=== PATIENT | female | born 1985 ===

== ENCOUNTER 2017-11-28 13:22 | Emergency (ER) | payer SELFPAY ==
[2017-11-28 20:06] VITALS: BP 108/66; PULSE 101; RESP 18; TEMP 98.1; O2SAT 98
== END 2017-11-28 15:35 | disposition home or self-care (01) ==
LOC: H.EROB2 13:22 → H.L&D 13:47 → H.EROB2 15:35
DX: O23.92 Unspecified genitourinary tract infection in pregnancy, second trimester (principal); Z3A.27 27 weeks gestation of pregnancy; O09.92 Supervision of high risk pregnancy, unspecified, second trimester

== ENCOUNTER 2018-02-23 03:21 | Inpatient (IN) | payer MEDICAID ==
[2018-02-23 03:46] VITALS: BMI 31.2
[2018-02-23] MEDS ORDERED: Lactated Ringer's 1,000 ML IV ONE (04:03)
[2018-02-23] MEDS ORDERED: Lactated Ringer's 1,000 ML IV SCH (04:15)
[2018-02-23 04:33] LABS: BASO # 0.1 K/uL (0.0-0.2); BASO % 0.5 % (0.0-2.0); EOS % 0.1 % (0.0-4.0); HEMOGLOBIN 11.3 g/dL (12.0-16.0); LYMPH # 1.2 K/uL (1.0-4.3); LYMPH % 9.3 % (20.0-40.0); MEAN CORPUSCULAR HEMOGLOBIN 30.2 pg (27.0-31.0); MEAN CORPUSCULAR HGB CONC 34.3 g/dL (33.0-37.0); MEAN PLATELET VOLUME 9.6 fl (7.2-11.7); MONO # 0.6 K/uL (0.0-0.8); MONO % 4.4 % (0.0-10.0); NEUT # 11.4 K/uL (1.8-7.0); NEUT % 85.7 % (50.0-75.0); PLATELET COUNT 176 K/uL (130-400); RBC 3.76 Mil/uL (3.80-5.20); RED CELL DISTRIBUTION WIDTH 17.2 % (11.5-14.5); WHITE BLOOD COUNT 13.3 K/uL (4.8-10.8)
[2018-02-23 05:41] LABS: LYMPHOCYTE 12 % (20-50); MONOCYTE 5 % (0-10); NEUTROPHIL 83 % (42-75); PLATELET ESTIMATE NORMAL (NORMAL); TOTAL CELLS COUNTED 100
[2018-02-23 05:42] LABS: ANISOCYTOSIS SLIGHT; HYPOCHROMIC SLIGHT
[2018-02-23] MEDS ORDERED: Oxytocin 30 UNIT 30 UNITS/500 ML BAG IV ONE (05:52)
[2018-02-23] MEDS ORDERED: OXYTOCIN/0.9 % NS 20 UNIT/1,000 ML BAG IV SCH (06:00)
[2018-02-23] MEDS ORDERED: Lidocaine 2% MPF (5 ml) Inj ONE (06:56)
--- NOTE | 2018-02-23 08:00 | OBHP ---
Datetime: 02/23/2018 07:57 IP Adm Impression: Term, intrauterine ; Active labor; Ruptured Membranes IP Admit Plan: Admit to unit; Initiate labor protocol Pelvic Type - PN: Adequate Extremities - PN: Normal Abdomen - PN: Normal Back - PN: Normal Breast - PN: Normal Lungs - PN: Normal Heart - PN: Normal Thyroid - PN: Normal Neurologic - PN: Normal HEENT - PN: Normal General - PN: Normal FHR - Baseline A Provider: 120s EGA AdmitDate IP: 38.1 Vital Signs Provider: Reviewed; Within Normal Limits IP Indication for Induction: Not Applicable IP Chief Complaint: Uterine contractions NICHD Variability Prov Fetus A: Moderate 6-25bpm NICHD Accel Fetus A IP Provider: 15X15 FHR Category Provider Fetus A: Category I NICHD Decel Fetus A IP Provider: None Dilatation, Provider: 5 Effacement, Provider: 100 Station, Provider: 0 Genitourinary Exam: Normal DTRs - PN: Normal Datetime: 11/28/2017 15:09 IP Chief Complaint Other: vaginal itching Admit Comment, IP Provider: 32 yo , IUP at 25.5 weeks gestational age, presented to [facility] with c/ o vaginal itching x1 day. States that yesterday she started experiencing itching/burning and had whit e discharge per vagina. No bleeding, no contractions, no feeling like she is losing fluid. Reports go od movement. PNC: [facility], Dr. Ramachandran Next visit 12/13 Obhx: hx abnormal pap with cone biopsy 4 y ago in [facility] hx: cone biopsy as above med hx: childhood asthma, resolved 10 y ago fam hx: father of complications of diabetes soc hx: denies tobacco alcohol drugs allergies: nkda meds: pnv PE: FHR reactive, + accels no ctx on monitor SSE: thick white discharge in vaginal vault Assessment: 32 yo with IUP at 25.5 weeks; no signs of labor at this time, likely has yeast infection. Plan: Given rx for terazol-7 nightly application x 7 days; advised to f/u in clinic at scheduled a ppointment or earlier prn. Pt seen/examined with Dr. Flores. Comments, ACOG Physical Exam: speculum exam: thick white discharge
--- NOTE | 2018-02-23 08:03 | OBADHP ---
Datetime: 02/23/2018 07:57 Admit Comment, IP Provider: presented to OB ED complaining of contractions. Also complaining o f leakage of fluids. Patient found to be 5 cm dilated and grossly ruptured. heart tracing reass uring Past medical history denies Past surgical history denies Medications vitamins No known drug allergies Obstetrical history Social history no tobacco, drugs, alcohol Assessment: Active labor, spontaneous rupture of membranes, GBS negative Plan: Admit to labor and delivery for management Pelvic Type - PN: Adequate Extremities - PN: Normal Abdomen - PN: Normal Back - PN: Normal Breast - PN: Normal Lungs - PN: Normal Heart - PN: Normal Thyroid - PN: Normal Neurologic - PN: Normal HEENT - PN: Normal General - PN: Normal FHR - Baseline A Provider: 120s Vital Signs Provider: Reviewed; Within Normal Limits IP Chief Complaint: Uterine contractions NICHD Variability Prov Fetus A: Moderate 6-25bpm NICHD Accel Fetus A IP Provider: 15X15 FHR Category Provider Fetus A: Category I NICHD Decel Fetus A IP Provider: None Dilatation, Provider: 5 Effacement, Provider: 100 Station, Provider: 0 Genitourinary Exam: Normal DTRs - PN: Normal EGA AdmitDate IP: 38.1 IP Adm Impression: Term, intrauterine ; Active labor; Ruptured Membranes IP Admit Plan: Admit to unit; Initiate labor protocol Datetime: 11/28/2017 15:09 IP Chief Complaint Other: vaginal itching Comments, ACOG Physical Exam: speculum exam: thick white discharge
--- NOTE | 2018-02-23 08:18 | OBDS ---
DELIVERY PERSONNEL Delivery Doctor: Juhi Flores MD Scrub Nurse: Glenis Nunez Structural Design Engineer: mike mead rn / abhinav coleman rn MATERNAL INFORMATION Delivery Anesthesia: Local Medications in Delivery: pitocin Estimated Blood Loss (ml): 200 Placenta Cultured: No Maternal Complications: None RN Comments: skin to skin bonding done Provider Comments: Normal spontaneous vaginal delivery. Patient delivered viable female with Apgars of 9 and 9 at one and 5 minutes respectively. I nfant delivered via SANDRA position. Placenta delivered spontaneously. Lacerations repaired, as above. U terus firm and appropriately hemostatic following delivery. Patient tolerated delivery and repair wel l. medications. Estimated blood loss 200 mL. LABOR SUMMARY EDC: 03/08/2018 00:00 No. Babies in Womb: 1 LABOR INFORMATION Onset of Labor: 02/22/2018 21:00 Complete Dilatation: 02/23/2018 06:00 Group B Beta Strep: Negative Steroids Given: None Reason Steroids Not Administered: Not Applicable MEMBRANES Membranes Rupture Method: Spontaneous Rupture of Membranes: 02/22/2018 22:00 Length of Rupture (hrs): 9.00 Amniotic Fluid Color: Clear Amniotic Fluid Amount: Large Amniotic Fluid Odor: Normal STAGES OF LABOR Stage 1 hrs: 9 Stage 1 min: 0 Stage 2 hrs: 1 Stage 2 min: 0 VAGINAL DELIVERY Episiotomy: None Laceration Extension: Second Degree Laceration Type: Perineal; Periurethral Laceration Repair Note: Second-degree midline peroneal laceration. Bilateral first-degree periurethr al lacerations. Area was infiltrated with 2% lidocaine. Lacerations repaired with 2. 0 repeat without complication. Patient tolerated repair well. BABY A INFORMATION Infant Delivery Date/Time: 02/23/2018 07:00 Method of Delivery: Vaginal Born in Route : No : N/A Forceps: N/A Vacuum Extraction: N/A SHOULDER DYSTOCIA BABY A Delivery Date/Time: 02/23/2018 07:00 PRESENTATION/POSITION BABY A Presentation: Cephalic Cephalic Presentation: Vertex Vertex Position: Left Occipital Anterior Breech Presentation: N/A INFORMATION BABY A Gestational Age at Delivery: 39 3/7 Gestational Status: Term Outcome : Liveborn Infant Condition : Stable Sex: Female
[2018-02-23] MEDS ORDERED: Oxycodone/Acetaminophen 5/325 mg Tab PO PRN ×2 (11:41→21:39)
[2018-02-23] MEDS ORDERED: Benzocaine/Menthol SPRAY TOP PRN ×2 (11:41→21:39)
[2018-02-23 13:00] LABS: BASO % 0.2 % (0.0-2.0); HEMOGLOBIN 9.3 g/dL (12.0-16.0); LYMPH # 1.2 K/uL (1.0-4.3); LYMPH % 6.9 % (20.0-40.0); MEAN CELL VOLUME 89.4 fl (81.0-99.0); MEAN CORPUSCULAR HEMOGLOBIN 30.2 pg (27.0-31.0); MEAN CORPUSCULAR HGB CONC 33.8 g/dL (33.0-37.0); MEAN PLATELET VOLUME 9.8 fl (7.2-11.7); MONO # 1.2 K/uL (0.0-0.8); NEUT # 14.7 K/uL (1.8-7.0); NEUT % 85.9 % (50.0-75.0); RBC 3.09 Mil/uL (3.80-5.20); RED CELL DISTRIBUTION WIDTH 17.2 % (11.5-14.5); WHITE BLOOD COUNT 17.1 K/uL (4.8-10.8)
--- NOTE | 2018-02-23 14:14 | OBPPN ---
Datetime: 02/23/2018 13:44 PP Pain Prov: Within normal limits PP Nausea Prov: Denies PP Flatus Prov: No PP BM Prov: No PP Breasts Prov: Not Done PP Heart Prov: Normal PP Lungs Prov: Normal PP Abdomen/Uterus Prov: Normal PP Lochia Prov: Normal PP Vulva/Perineum Prov: Not Done PP CVA Tenderness Prov: Not Done PP Extremities Prov: Normal PP Impression Prov: Normal progression PP Plan Prov: Continue present management PP Progress Note Prov: PPD 0 Pt is a 32 y/o female s/p at 7am this morning. Pt's heart rate noted to be elevated ran ging from 100-160's. Pt had brief episode of feeling lightheaded when getting up from toilet as per Matt Wheeler. I saw and evaluated pt. She denied any cp, sob. Stated she had mild abdominal pain and was feeling anxious. O: Remainder of vitals reviewed: BP stable, Afebrile, O2 sat 98-99 on rm air Cardipulmonary exam was uremarkable. CBC ordered: Hemoglobin 9.3 (before delivery was 11.3) EKG: Normal Sinus Rythm Pt evaluated again and was found sleeping with HR in 90's. Discussed case with Dr. Schmidt. OBHospitalist Addendum: 32 yo [id number] PPD 0 s/o , w/ no c/o w/ tachycardia. Will order TSH and order medicine consult. (ES) Vital Signs Provider PP: Reviewed Vital Signs Provider Details PP: Pt tachycardiac ranging from 100-150's
--- NOTE | 2018-02-23 16:08 | CP.PCM.CON ---
History of Present Illness - History of Present Illness History of Present Illness: 32 yo female just delivered spontaneously vaginally to a healthy female referred because of tachyarrhythmia. Patient claimed that she still have bearable lower abdominal pain which get worse when she ambulate. Heart rate jumped from within normal limit to above 100 when standing and ambulating. Meds Allergies/Adverse Reactions: Allergies Allergy/AdvReac Type Severity Reaction Status Date / Time No Known Allergies Allergy Verified 11/28/17 13:38 - Medications Medications: Current Medications Benzocaine/Menthol (Dermoplast) 1 sprays TOP Q6 PRN PRN Reason: Perineal Discomfort Lactated Ringer's (Lactated Ringer's) 1,000 mls @ 125 mls/hr IV .Q8H TETE Last Admin: 02/23/18 05:00 Dose: 125 mls/hr Ibuprofen (Motrin Tab) 600 mg PO Q6 PRN PRN Reason: Pain, Mild (1-3) Multivitamins/Minerals (Therapeutic-M Tab) 1 tab PO DAILY [facility] Oxycodone/Acetaminophen (Percocet 5/325 Mg Tab) 1 tab PO Q4 PRN PRN Reason: Pain, moderate (4-7) Stop: 02/26/18 11:42 Sennosides (Senokot Tab) 17.2 mg PO HS [facility] Results - Vital Signs Recent Vital Signs: Last Vital Signs Temp 98 F 02/23/18 04:30 Pulse 83 02/23/18 04:30 Resp 18 02/23/18 04:30 BP 127/83 02/23/18 04:30 Pulse Ox 98 02/23/18 04:30 - Labs Result Diagrams: 02/23/18 11:40 Labs: Laboratory Results - last 24 hr 02/23/18 02/23/18 02/23/18 04:20 04:29 11:40 WBC 13.3 H 17.1 H RBC 3.76 L 3.09 L Hgb 11.3 L 9.3 L D Hct 33.0 L 27.6 L MCV 88.0 D 89.4 MCH 30.2 30.2 MCHC 34.3 33.8 RDW 17.2 H 17.2 H Plt Count 176 151 MPV 9.6 9.8 Neut % (Auto) 85.7 H 85.9 H Lymph % (Auto) 9.3 L 6.9 L Pine % (Auto) 4.4 7.0 Eos % (Auto) 0.1 0.0 Baso % (Auto) 0.5 0.2 Neut # (Auto) 11.4 H 14.7 H Lymph # (Auto) 1.2 1.2 Pine # (Auto) 0.6 1.2 H Eos # (Auto) 0.0 0.0 Baso # (Auto) 0.1 0.0 Neutrophils % (Manual) 83 H Lymphocytes % (Manual) 12 L Monocytes % (Manual) 5 Platelet Estimate Normal Hypochromasia (manual) Slight Anisocytosis (manual) Slight Blood Type O POSITIVE Antibody Screen Negative BBK History Checked Patient has bt Assessment & Plan - Assessment and Plan (Free Text) Assessment: tachycardia secondary to pain and volume depletion post delivery IV hydration with NSS at 200cc/hr pain management repeat CBC and BMP
[2018-02-23] MEDS ORDERED: Sodium Chloride 0.9% 1,000 ML IV SCH ×2 (16:15→21:39)
[2018-02-23 19:36] LABS: BASO % 0.1 % (0.0-2.0); LYMPH # 1.9 K/uL (1.0-4.3); LYMPH % 12.1 % (20.0-40.0); MEAN CELL VOLUME 89.9 fl (81.0-99.0); MEAN CORPUSCULAR HEMOGLOBIN 29.7 pg (27.0-31.0); MEAN CORPUSCULAR HGB CONC 33.1 g/dL (33.0-37.0); MEAN PLATELET VOLUME 9.5 fl (7.2-11.7); MONO # 1.2 K/uL (0.0-0.8); NEUT # 12.3 K/uL (1.8-7.0); NEUT % 79.8 % (50.0-75.0); NRBC % 0.1 % (0.0-0.0); RBC 3.03 Mil/uL (3.80-5.20); RED CELL DISTRIBUTION WIDTH 16.9 % (11.5-14.5); WHITE BLOOD COUNT 15.4 K/uL (4.8-10.8)
[2018-02-23 19:41] LABS: BLOOD UREA NITROGEN 10 mg/dl (7-17); CALCIUM 8.7 mg/dL (8.4-10.2); GFR AFRICAN-AMERICAN > 60; GFR NON-AFRICAN AMERICAN > 60
--- NOTE | 2018-02-23 22:44 | CARD ---
APPROVED REPORT Date of service: 02/23/2018 EKG Measurement Heart [id number] <Conclusion> Sinus rhythm with short OR Otherwise normal ECG
[2018-02-24 06:41] LABS: BASO # 0.1 K/uL (0.0-0.2); BASO % 0.5 % (0.0-2.0); EOS # 0.1 K/uL (0.0-0.7); EOS % 0.4 % (0.0-4.0); HEMOGLOBIN 8.3 g/dL (12.0-16.0); LYMPH # 2.7 K/uL (1.0-4.3); LYMPH % 18.8 % (20.0-40.0); MEAN CELL VOLUME 89.3 fl (81.0-99.0); MEAN CORPUSCULAR HEMOGLOBIN 30.1 pg (27.0-31.0); MEAN CORPUSCULAR HGB CONC 33.7 g/dL (33.0-37.0); MEAN PLATELET VOLUME 9.3 fl (7.2-11.7); MONO # 1.3 K/uL (0.0-0.8); MONO % 8.8 % (0.0-10.0); NEUT # 10.4 K/uL (1.8-7.0); NEUT % 71.5 % (50.0-75.0); RBC 2.76 Mil/uL (3.80-5.20); RED CELL DISTRIBUTION WIDTH 17.1 % (11.5-14.5); WHITE BLOOD COUNT 14.5 K/uL (4.8-10.8)
[2018-02-24] MEDS: Multivitamin With Minerals Tab PO SCH (08:51)
[2018-02-24] MEDS ORDERED: Multivitamin With Minerals Tab PO SCH (09:00)
--- NOTE | 2018-02-24 11:04 | CP.PCM.PN ---
Subjective - Date & Time of Evaluation Date of Evaluation: 02/24/18 Time of Evaluation: 10:20 - Subjective Subjective: Patient seen and examined. [place] better. Denied palpitation or dizziness. Objective - Vital Signs/Intake and Output Vital Signs (last 24 hours): Temp Pulse Resp BP Pulse Ox 98 F 83 18 127/83 98 02/23/18 04:30 02/23/18 04:30 02/23/18 04:30 02/23/18 04:30 02/23/18 04:30 - Medications Medications: Current Medications Benzocaine/Menthol (Dermoplast) 1 sprays TOP Q6 PRN PRN Reason: Perineal Discomfort Ibuprofen (Motrin Tab) 600 mg PO Q6 PRN PRN Reason: Pain, Mild (1-3) Last Admin: 02/24/18 08:51 Dose: 600 mg Multivitamins/Minerals (Therapeutic-M Tab) 1 tab PO DAILY TETE Last Admin: 02/24/18 08:51 Dose: 1 tab Oxycodone/Acetaminophen (Percocet 5/325 Mg Tab) 1 tab PO Q4 PRN PRN Reason: Pain, moderate (4-7) Stop: 02/26/18 11:42 Sennosides (Senokot Tab) 17.2 mg PO HS TETE Last Admin: 02/23/18 22:16 Dose: 17.2 mg - Labs Labs: 02/24/18 06:20 02/23/18 18:30 - Respiratory Exam Respiratory Exam: absent: Rales, Rhonchi, Wheezes, Respiratory Distress - Cardiovascular Exam Cardiovascular Exam: REGULAR RHYTHM, +S1, +S2 Assessment and Plan (1) Tachycardia Assessment & Plan: Sinus tachyardia, physiological in nature and in response to painful situation. Will sign off. Status: Acute
--- NOTE | 2018-02-24 23:01 | OBPPN ---
Datetime: 02/24/2018 08:16 PP Pain Prov: Within normal limits PP Nausea Prov: Denies PP BM Prov: No PP Heart Prov: Normal PP Lungs Prov: Normal PP Comments Phys Exam Prov: see progress note PP Impression Prov: Normal progression PP Plan Prov: Continue present management PP Progress Note Prov: S: Patient seen and examined thi AM, s/p yesterday. Patient c/o mild pel krzysztof pain and back pain and now requested motrin to RN, Patient is tolerating PO food w/o N/V, voiding well w/o blood in urine, lochia is less than menses in volume already, is passing gas per rectum alr [place], is ambulating but c/o mild dizziness while getting OOB. Patient denies TURNER, chest pain, palpitat ions, SOB, fever, chills, dysruria or calf pain. Patient reports she is breasfeeding baby. O: CBC H/H 8.3/24.7 VS: BP 4AM 117/73 HR 84 T 98.7 Physical exam GEN: NAD HEENT: Normocephalic, EOMI RESP: CTA b/l CV: RRR, No murmurs noted ABD: soft, non-tender, uterus about 1 cm below umbicus level LE: no edema, Clovis's negative A/P 32 y/o s/p , with appropiate progression of , with asymptomatic anemia and VS W NL today, today going into her PPD1 -Continue maternal VS monitoring -Regular diet -Encourage and ambulation -Motrin 600 po Q6h prn for pain -D/C planning Chichi Hendrix MD PGY1 Attending addendum: I saw and examined the patient at bedside myself this morning. I reviewed the resident note above and agree with findings and management. Doing well, cont routine pp care. Ancitipate DC home tomorrow. Lillian Wen MD Vital Signs Provider PP: Reviewed; Within Normal Limits
[2018-02-25] MEDS: Multivitamin With Minerals Tab PO SCH (10:42)
[2018-02-25 19:04] VITALS: BP 111/70; PULSE 77; RESP 20; TEMP 98.7; O2SAT 100
--- NOTE | 2018-02-25 20:54 | OBDCSUM ---
Datetime: 02/25/2018 05:54 Discharge Comment, Provider: EGA:38.1wk Diagnosis: NVD risk factors: NOne Diamond: 02/23/18 @ 07:00 Post Summary: No complications during post period. Lochia less than menses. Pt was a ble to pass gas and BM, She is on regular diet, Fundus firm @ umbilicus. Able to ambulate and pass ur ine CBC post : 9.3/27.6 Discharge Instructions: Pt should keep trying to breast feed, IF desire help, pt should seek consult with PCP PNV 1 tab po daily Ibuprofen 600mg 1 tab prn for mild-mod pain ER precautions: If excessive bleeding or fever without relief from medication, go to ED PT was urged if feeling sad, mood swing, depression, neglect of baby, suicidal thoughts, homicidal thought should go to ER or call 911 for help F/U 4-6 week for PP visit Attending addendum: I saw and examined the patient at bedside myself this morning. I reviewed the resident note above and agree with findings and managment. Lillian Wen MD
--- NOTE | 2018-02-25 20:54 | OBPPN ---
Datetime: 02/25/2018 05:51 PP Pain Prov: Within normal limits PP Nausea Prov: Denies PP Flatus Prov: Yes PP BM Prov: Yes PP Breasts Prov: Not Done PP Heart Prov: Normal PP Lungs Prov: Normal PP Abdomen/Uterus Prov: Normal PP Lochia Prov: Normal PP Vulva/Perineum Prov: Not Done PP CVA Tenderness Prov: Normal PP Extremities Prov: Normal PP C/S Incision Prov: Not Applicable PP Progress Prov: Abnormal PP Comments Phys Exam Prov: Mentioned in progress note PP Impression Prov: Normal progression PP Plan Prov: Discharge PP Progress Note Prov: S: 32 yo female sp on 02/23/18 evaluated on PPD2. Pt was seen and examined at bedside this AM. No overnight events. Pt reports mild abdominal pain, but well controlled with pain meds. Ambulating. Formula use, Pt state she have difficulty with breast feeding . Lochia i s less than menses in volume. +Flatus/+BM. Denies fever/chills, diarrhea, nausea/vomiting, chest kenneth n, dyspnea, and dizziness. O:H/H 11.3/33 02/23, 9.3/27.6 02/24 AM Repeat CBC H/H8.3/24.7 08 PM WBC 14.5 VS: Stable, WNL GEN: NAD Cardio: S1S2, no murmurs or extra heart sound Lungs: clear breath sounds b/l, no wheezing Abdomen: BS+, appropriate tenderness to palpation. Uterus is firm and at the level of the umbilic us. EXT: No edema, calves non-tender NEURO/PSYCH: AAOx3, no grossly focal deficits, preserved affect and mood. H/H (post ):9.3/27.6-> 8.3/24.7 Assessment/Plan: 32 yo female s/p on 02/23/18 evaluated on PPD2. Pt remains afebrile, t olerating pain with medication. Tolerating diet. Anticipating d/c on 02/25/18. Continue with current management Encourage and ambulating Ibuprofen 600mg q6 for pain PRN Ferrous Sulfate 325mg BID Will be discharged today with script of Ibuprofen 600mg q6 for pain PRN Laura PGY1 Attending addendum: I saw and examined the patient at bedside myself this morning. I reviewed the resident note above and agree with findings and managment. Lillian Wen MD Vital Signs Provider PP: Reviewed; Within Normal Limits
== END 2018-02-25 12:30 | disposition home or self-care (01) | DRG 372 ==
LOC: H.EROB2 03:21 → H.L&D 04:04 → H.OB/GYN 21:30
PROVIDERS: ADMIT Obstetrics & Gynecology; ATTEND Obstetrics & Gynecology
PROC: 10E0XZZ Delivery of Products of Conception, External Approach (ICD-10-PCS; principal; 2018-02-23)
PROC: 0KQM0ZZ Repair Perineum Muscle, Open Approach (ICD-10-PCS; 2018-02-23)
PROC: 4A1HXCZ Monitoring of Products of Conception, Cardiac Rate, External Approach (ICD-10-PCS; 2018-02-23)
DX: O70.1 Second degree perineal laceration during delivery (principal); O90.89 Other complications of the puerperium, not elsewhere classified; E86.9 Volume depletion, unspecified; O90.81 Anemia of the puerperium; O71.82 Other specified trauma to perineum and vulva; R00.0 Tachycardia, unspecified; Z37.0 Single live birth; Z3A.39 39 weeks gestation of pregnancy